=== PATIENT | female | born 1960 | race Two or more races ===

== ENCOUNTER 2016-06-14 09:25 | Emergency (ER) | payer OTHER ==
--- NOTE | ~2016-06-14 | CR230 ---
[facility]. [facility] A Service of [facility] & [facility] RADIOLOGY TEXT RESULTS PATIENT: DERIK TRINIDAD LOCATION: SED : 62 UNIT #: [id number] AGE: [address]: Miguel Jones MD SEX: F ORDER DR: [id number] [place] [id number] E MR#: [id number] Acc #: [id number] NAME: DERIK TRINIDAD : 1960 SEX: F STUDY DATE/TIME: 06/14/2016 9:26 UNIT: SED ROOM: STUDY DESCRIPTION: CR Shoulder Min 2 View Rt Attending Physician: Miguel Jones M.D. Ordering Physician: Miguel Jones M.D. MEDICAL IMAGING REPORT This report is preliminary unless electronic signature is present. EXAM Right shoulder 06/14/2016 INDICATION Shoulder pain for 15 days. No trauma. FINDINGS 3 views of the right shoulder are compared with 03/30/2012. 4 surgical anchors are again seen in the proximal humerus. No fracture or dislocation is seen. There is no AC joint separation. There is AC joint arthropathy. There is also some glenohumeral arthropathy. 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 No acute findings. Dictated by... Tyrese Mcdaniel Jr., M.D. THIS IS AN ELECTRONICALLY VERIFIED REPORT Tyrese Mcdaniel Jr., M.D. at 06/14/2016 4:48 PM YARIEL/eliza TD: 06/14/2016 12:39 JOB #: [id number] MEDICAL IMAGING REPORT Page 1 of 1
--- NOTE | ~2016-06-14 | CR63 ---
[facility]. [facility] A Service of [facility] & [facility] RADIOLOGY TEXT RESULTS PATIENT: DERIK TRINIDAD LOCATION: SED : 62 UNIT #: [id number] AGE: [address]: Miguel Jones MD SEX: F ORDER DR: [id number] [place] [id number] E MR#: [id number] Acc #: [id number] NAME: DERIK TRINIDAD : 1960 SEX: F STUDY DATE/TIME: 06/14/2016 9:26 UNIT: SED ROOM: STUDY DESCRIPTION: CR Chest 2 View Attending Physician: Miguel Jones M.D. Ordering Physician: Miguel Jones M.D. MEDICAL IMAGING REPORT This report is preliminary unless electronic signature is present. EXAM Two-view chest HISTORY Right shoulder and chest pain for approximately 15 days. Pain with coughing, sneezing, moving right arm COMPARISON 04/23/2014 FINDINGS 2 views of the chest demonstrate moderate lung volumes. No infiltrates or effusions. Heart and mediastinum unremarkable except for minimal aortic atherosclerotic changes. Postsurgical changes of the right shoulder with multiple suture anchors within the right proximal humerus suggesting prior rotator cuff repair. IMPRESSION No active disease. Dictated by... Dillan Tucker M.D. THIS IS AN ELECTRONICALLY VERIFIED REPORT Dillan Tucker M.D. at 06/15/2016 7:28 AM DENA/machelle TD: 06/14/2016 12:36 JOB #: [id number] MEDICAL IMAGING REPORT Page 1 of 1
[~2016-06-14 09:25] MED LIST: ACETAMINOPHEN PO; CLOBETASOL 0.0560 GM TOP; CORTISPORI3.5 GM OPT TOP; DICLOFENAC; FLEXERIL10 MG; IBUPROFEN PO; LORTAB 7.5-5001 TAB PO; METHOTREXATE2.5 MG PO; NO MEDICATIONS; OMEPRAZOLE20 M1 PO; PROTONIX PO; TRIDESILON 0.0515 G2 EXT; ZANAFLEX4 M1 PO
[2016-07-09] MEDS ORDERED: NO MEDICATIONS (09:25)
== END 2016-06-14 11:00 | disposition home or self-care (01) ==
LOC: SED 09:25
DX: R07.9 Chest pain, unspecified (principal); M25.511 Pain in right shoulder; Z98.890 Other specified postprocedural states
CPT/HCPCS: 71020; 73030; 99283; 99284

== ENCOUNTER 2016-07-09 09:39 | Emergency (ER) | payer OTHER ==
--- NOTE | ~2016-07-09 | CR63 ---
[facility] A Service of [facility] & [facility] RADIOLOGY TEXT RESULTS PATIENT: DERIK TRINIDAD LOCATION: SED : 62 UNIT #: [id number] AGE: [address]: Larry Sr DO SEX: F ORDER DR: [id number] [place] [id number] E MR#: [id number] Acc #: [id number] NAME: DERIK TRINIDAD : 1960 SEX: F STUDY DATE/TIME: 07/09/2016 UNIT: SED ROOM: STUDY DESCRIPTION: CR Chest 2 View Attending Physician: Larry Sr Ordering Physician: Larry Sr Primary Care Physician: [facility] MEDICAL IMAGING REPORT This report is preliminary unless electronic signature is present. EXAM Chest 2 views, 07/09/2016 09:51 hours HISTORY 55-year-old woman with 2-day history of fever, headache, cough and sore throat. COMPARISON 06/14/2016 FINDINGS Upright PA and lateral views of the chest demonstrate normal cardiac, mediastinal and hilar contours. The lungs are clear and there are no effusions. IMPRESSION No acute cardiopulmonary findings. No appreciable change from 06/14/2016. Dictated by... Sherry Young M.D. THIS IS AN ELECTRONICALLY VERIFIED REPORT Sherry Young M.D. at 07/09/2016 2:32 PM NINO/harika TD: 07/09/2016 10:23 JOB #: [id number] MEDICAL IMAGING REPORT Page 1 of 1
[2016-07-09 10:07] LABS: INFLUENZA A NEG (NEG); INFLUENZA B NEG (NEG)
[2016-07-09 10:08] LABS: BASOPHIL% 0.4 % (0-2.5); EOSINOPHIL# 0.2 X10e3 (0-0.7); EOSINOPHIL% 2.5 % (0.0-7.0); HEMATOCRIT 38.7 % (35.0-45.0); LYMPHOCYTE# 1.4 X10e3 (1.0-3.5); LYMPHOCYTE% 18.6 % (17.0-45.0); MEAN CELL VOLUME 93.1 FL (83-96); MEAN CORPUSCULAR HEMOGLOBIN 31.2 PG (28-34); MEAN CORPUSCULAR HGB CONC 33.5 g/dL (30-36); MEAN PLATELET VOLUME 7.7 FL (6.5-11.5); MONOCYTE# 0.5 X10e3 (0-1.0); MONOCYTE% 6.9 % (3.0-12.0); NEUTROPHIL# 5.6 X10e3 (1.5-7.1); NEUTROPHIL% 71.6 % (40-75); PLATELET COUNT 249 X10e3 (140-420); RED BLOOD COUNT 4.16 X10e (3.90-5.30); RED CELL DISTRIBUTION WIDTH 13.2 % (11.0-15.5); WHITE BLOOD COUNT 7.8 X10e3 (4.0-10.5)
[2016-07-09 10:19] LABS: DIFF IND NO
[2016-07-09 10:35] LABS: ALBUMIN SERUM 3.9 g/dL (3.5-5.0); BILIRUBIN, DIRECT 0.1 mg/dL (0.0-0.2); BILIRUBIN,INDIRECT 0.2 mg/dL (0.0-0.9); BILIRUBIN,TOTAL 0.3 mg/dL (0.2-2.0); CALCIUM SERUM 9.1 mg/dL (8.4-10.2); CREATININE SERUM 0.7 mg/dL (0.6-1.4); GLOM FILT RATE Estimated 98.2 mL/min (>60); POTASSIUM 3.8 mmol/L (3.5-5.1); PROTEIN TOTAL SERUM 7.5 g/dL (6.0-8.3)
== END 2016-07-09 11:33 | disposition home or self-care (01) ==
LOC: SED 09:39
PROVIDERS: Emergency Medicine
DX: R05 Cough (principal); R51 Headache
CPT/HCPCS: 36415; 71020; 80048; 80076; 85025; 87651; 87804; 96361; 96374; 99284; J1885

== ENCOUNTER 2016-11-15 08:52 | Emergency (ER) | payer OTHER ==
[~2016-11-15] VITALS: Ht 160 cm; Wt 81.6 kg
[2016-11-15 10:15] LABS: URINE SOURCE CLEAN CATCH
[2016-11-15 10:22] LABS: URINE APPEARANCE CLEAR; URINE BILIRUBIN NEG (NEG); URINE BLOOD NEG (NEG); URINE COLOR YELLOW; URINE GLUCOSE NEG (NEG); URINE KETONE NEG (NEG); URINE LEUKOCYTE ESTERASE NEG (NEG); URINE NITRATE NEG (NEG); URINE PROTEIN NEG (NEG); URINE SPECIFIC GRAVITY 1.019 (1.003-1.035); URINE UROBILINOGEN 0.2 MG/DL (NEG)
[2016-11-15 10:26] LABS: CULTURE INDICATED? NO
== END 2016-11-15 10:57 | disposition home or self-care (01) ==
LOC: CED 08:52 → CFTX 08:52
PROVIDERS: Nurse Practitioner
DX: M54.42 Lumbago with sciatica, left side (principal); M54.41 Lumbago with sciatica, right side
CPT/HCPCS: 81003; 96372; 99283; J1885